=== PATIENT | female | born 1975 | race Hispanic/Latino ===

== ENCOUNTER 2019-01-05 14:19 | Observation (INO) | payer SELFPAY ==
[2019-01-05 15:09] LABS: #Basophils 0.1 thou/uL (0.0-0.2); #Eosinphils 0.1 thou/uL (0.0-0.7); #Lymphocytes 3.3 thou/uL (1.20-3.40); #Monocytes 0.5 thou/uL (0.11-0.59); %Basophils 1.1 % (0.0-1.0); %Eosinophils 1.6 % (0.0-10.0); %Lymphocytes 36.9 % (21.0-51.0); %Monocytes 5.4 % (0.0-10.0); Hemoglobin 15.6 g/dL (12.0-16.0); Mean Corpuscular HGB CONC 34.7 g/dL (32.0-36.0); Mean Corpuscular Volume 89.2 fL (78.0-98.0); Mean Platelet Volume 10.5 fL (7.4-10.4); Platelet Count 216 thou/uL (130-400); RBC Distribution Width 12.6 % (11.5-14.5); Red Blood Cell (RBC) Count 5.04 mill/uL (4.20-5.40)
--- NOTE | 2019-01-05 15:24 | RAD ---
TWO VIEW CHEST: Indication: Chest pain. FINDINGS: The lung romero are clear. Vascular markings are normal. Heart and mediastinum are unremarkable. Osse ous structures unremarkable. IMPRESSION: Unremarkable chest. POS: [facility]
[2019-01-05 15:32] LABS: ALT (SGPT) 104 U/L (8-55); AST (SGOT) 69 U/L (5-34); Albumin 5.1 g/dL (3.5-5.0); Alkaline Phosphatase 106 U/L (40-150); Anion Gap 20 mmol/L (10-20); BUN (Urea Nitrogen) 11 mg/dL (7.0-18.7); Bilirubin, Total 1.7 mg/dL (0.2-1.2); CK (CPK) 68 U/L (29-168); Calc. Creatinine Clearance 0 mL/min (70-130); Calcium 11.2 mg/dL (7.8-10.44); Carbon Dioxide 19 mmol/L (22-29); Chloride 98 mmol/L (98-107); Estimated GFR-MDRD 85; Globulin 3.8 g/dL (2.4-3.5); Glucose 107 mg/dL (70-105); Protein, Total 8.9 g/dL (6.0-8.3); Sodium 134 mmol/L (136-145)
[2019-01-05 15:45] LABS: Potassium 2.6 mmol/L (3.5-5.1)
[2019-01-05] MEDS ORDERED: Potassium Chloride 20 MEQ TAB ONE (16:44)
--- NOTE | 2019-01-05 18:27 | PDOC.FPRHP ---
- History of Present Illness Chief Complaint: Chest pain History of Present Illness: Ms. Rosales presents for complaints of chest pain She reports pressure like sensation surrounding her entire chest, intermittent in nature. She has also been noticing SOB for 2 weeks, WATKINS present, also difficulty sleeping 2/2 SOB. She also reports palpitations, blurry vision, pre- syncope, and headache during these episodes. She denies diaphoresis or abdominal episode. She denies a heart history and has never had a work up. ED Course: CBC, CMP, trop, EKG, CK, Mg Potassium - Allergies/Adverse Reactions Allergies Allergy/AdvReac Type Severity Reaction Status Date / Time No Known Drug Allergies Allergy Unverified 01/05/19 23:39 - History PMHx: DMII, HTN PSHx: cancerous lesion removal FHx:DMII Social: No TAD - Review of Systems General: denies: fever/chills, weight/appetite/sleep changes Eyes: denies: vision changes Respiratory: reports: shortness of breath. denies: cough, congestion Cardiovascular: reports: chest pain, palpitation. denies: edema Gastrointestinal: denies: nausea, vomiting, diarrhea Genitourinary: denies: dysuria Skin: denies: rashes Musculoskeletal: denies: pain Neurological: denies: numbness, syncope - Vital signs BP: 149/91 HR: 110 RR: 15 Tmax: 98.6 Pox: 98% on RA Wt: 63kg - Physical Exam Constitutional: NAD, awake, alert and oriented HEENT: normocephalic and atraumatic, grossly normal vision, grossly normal hearing Neck: supple, trachea midline Chest: no-tender to palpation Heart: RRR, normal S1/S2, no murmurs/rubs/gallops, pulses present, no edema Lungs: CTAB, no respiratory distress, good air movement Abdomen: soft, non-tender Musculoskeletal: normal structure, normal tone Neurological: no focal deficit, CN II-XII intact Skin: no rash/lesions, good turgor Heme/Lymphatic: no unusual bruising or bleeding Psychiatric: normal mood and affect FMR H&P: Results - Labs Result Diagrams: 01/05/19 14:51 01/05/19 14:51 Lab results: WBC 9.0 thou/uL (4.8-10.8) 01/05/19 14:51 Hgb 15.6 g/dL (12.0-16.0) 01/05/19 14:51 Hct 44.9 % (36.0-47.0) 01/05/19 14:51 MCV 89.2 fL (78.0-98.0) 01/05/19 14:51 Plt Count 216 thou/uL (130-400) 01/05/19 14:51 Neutrophils % 55.0 % (42.0-75.0) 01/05/19 14:51 Sodium 134 mmol/L (136-145) L 01/05/19 14:51 Potassium 2.6 mmol/L (3.5-5.1) L* 01/05/19 14:51 Chloride 98 mmol/L (98-107) 01/05/19 14:51 Carbon Dioxide 19 mmol/L (22-29) L 01/05/19 14:51 BUN 11 mg/dL (7.0-18.7) 01/05/19 14:51 Creatinine 0.74 mg/dL (0.6-1.1) 01/05/19 14:51 Glucose 107 mg/dL (70-105) H 01/05/19 14:51 Calcium 11.2 mg/dL (7.8-10.44) H 01/05/19 14:51 Total Bilirubin 1.7 mg/dL (0.2-1.2) H 01/05/19 14:51 AST 69 U/L (5-34) H 01/05/19 14:51 ALT 104 U/L (8-55) H 01/05/19 14:51 Alkaline Phosphatase 106 U/L (40-150) 01/05/19 14:51 Creatine Kinase 68 U/L (29-168) 01/05/19 14:51 Serum Total Protein 8.9 g/dL (6.0-8.3) H 01/05/19 14:51 Albumin 5.1 g/dL (3.5-5.0) H 01/05/19 14:51 FMR H&P: A/P - Problem List (1) Atypical chest pain Current Visit: Yes Status: Acute Code(s): R07.89 - OTHER CHEST PAIN (2) DMII (diabetes mellitus, type 2) Current Visit: Yes Status: Acute (3) HTN (hypertension) Current Visit: Yes Status: Acute Code(s): I10 - ESSENTIAL (PRIMARY) HYPERTENSION (4) Transaminitis Current Visit: Yes Status: Acute Code(s): R74.0 - NONSPEC ELEV OF LEVELS OF TRANSAMNS & LACTIC ACID DEHYDRGNSE - Plan Atypical chest pain - VSS, trop negx3, EKG wnl, risk factors present - unlikely cardiac in nature, no further workup indicated - FLP pending - observation on tele HTN - aware, continue home meds DMII - aware, continue home meds Hypokalemia - supplemented in ED - monitor CMP Transaminitis - most likely NAFLD - consider hepatitis panel, RUQ US - can be worked up outpatient Code: full ppx: lovenox dispo: admit to tele for monitoring, further risk stratification with FLP, consider statin FMR H&P: Upper Level - Pertinent history 43F p/w two weeks of intermittent chest pain. Described as a tightness and an "inflammation". She points to the epigastric region, but reports the pain will occasionally radiate to bilateral flanks. The pain will sometimes occur while cleaning the house, but will also occur during periods of rest. Associated with mild SOB and WATKINS during these painful episodes. Also c/o lightheadedness and headaches over the last several weeks as well. She denies any heartburn, cough, or fevers. Pain not associated with meals. ED: KCL 40mEq - Pertinent findings CXR: negative EKG: NSR CBC normal Na: 134 K: 2.6 Ma.2 Ca: 11.2 T.bili: 1.7 AST/ALT: 69/104 trop: negative gen: A&Ox3; in no acute distress CV: RRR, no murmurs; no pain to palpation of chest wall Pulm: CTA-B Abd: mild LUQ tenderness; no guarding or distention - Plan Date/Time: 01/05/191824 IAmado, have evaluated this patient and agree with findings/plan as outlined by market research intern resident. Pertinent changes/additions are listed here. Atypical chest pain r/o ACS: admit to tele/obs. Trend troponins, normal EKG with no T wave abnormalities. Possibly precipitated by recent addition of metformin and HCTZ. VSS in ED. Heart score of 1. No stress test or further cardiac work up indicated. Hypokalemia: repleted with 40mEq. recheck in AM. No changes on EKG. Transaminitis: moderate elevation in AST/ALT with increased total bilirubin. Consider checking hepatitis panel and RUQ US. Alk phos is normal, likely no biliary obstruction. Patient denies any acetaminophen usage. Plts and albumin are appropriate, no stigmata of chronic liver disease
[2019-01-05 18:39] LABS: Troponin I Less than 0.010 ng/mL (< 0.028)
[2019-01-05 21:44] LABS: Troponin I Less than 0.010 ng/mL (< 0.028)
[2019-01-05] MEDS ORDERED: Acetaminophen 325 MG TAB PO PRN (23:30)
[2019-01-06] MEDS ORDERED: Morphine 4 MG/ML VIAL SLOW IVP PRN (01:52)
[2019-01-06] MEDS ORDERED: Nitroglycerin 0.4 MG TAB (25 Tab Bottle) SL PRN (01:52)
[2019-01-06 04:22] LABS: #Eosinphils 0.2 thou/uL (0.0-0.7); #Lymphocytes 2.7 thou/uL (1.20-3.40); #Monocytes 0.5 thou/uL (0.11-0.59); %Basophils 0.6 % (0.0-1.0); %Eosinophils 2.6 % (0.0-10.0); %Lymphocytes 36.4 % (21.0-51.0); %Monocytes 6.8 % (0.0-10.0); %Neutrophils 53.5 % (42.0-75.0); Hemoglobin 14.6 g/dL (12.0-16.0); Mean Corpuscular HGB CONC 34.6 g/dL (32.0-36.0); Mean Corpuscular Hemoglobin 31.2 pg (27.0-31.0); Mean Corpuscular Volume 90.2 fL (78.0-98.0); Mean Platelet Volume 10.5 fL (7.4-10.4); Platelet Count 191 thou/uL (130-400); RBC Distribution Width 12.9 % (11.5-14.5); Red Blood Cell (RBC) Count 4.67 mill/uL (4.20-5.40); White Blood Cell (WBC) Count 7.5 thou/uL (4.8-10.8)
[2019-01-06 04:46] LABS: ALT (SGPT) 81 U/L (8-55); AST (SGOT) 48 U/L (5-34); Albumin 4.4 g/dL (3.5-5.0); Alkaline Phosphatase 86 U/L (40-150); Anion Gap 15 mmol/L (10-20); BUN (Urea Nitrogen) 17 mg/dL (7.0-18.7); Bilirubin, Total 1.2 mg/dL (0.2-1.2); Calc. Creatinine Clearance 0 mL/min (70-130); Calcium 9.9 mg/dL (7.8-10.44); Carbon Dioxide 18 mmol/L (22-29); Cardiac Risk 5.7 (Less than 4.5); Chloride 108 mmol/L (98-107); Cholesterol 193 mg/dl (< 200 Desired); Estimated GFR-MDRD 84; Globulin 3.3 g/dL (2.4-3.5); Glucose 121 mg/dL (70-105); HDL Cholesterol 34 mg/dL (>60 Neg Risk); LDL Cholesterol, Calculated 123 mg/dL; Potassium 3.3 mmol/L (3.5-5.1); Protein, Total 7.7 g/dL (6.0-8.3); Sodium 138 mmol/L (136-145); Triglycerides 178 mg/dL (Less than 150)
[2019-01-06] MEDS ORDERED: Potassium Chloride 20 MEQ TAB PO SCH (07:30)
[2019-01-06] MEDS ORDERED: Potassium Chloride 20 MEQ TAB ONE (08:27)
[2019-01-06] MEDS ORDERED: Enoxaparin Sodium 40 MG/0.4 ML SYRINGE ONE (08:27)
[2019-01-06] MEDS: Potassium Chloride 20 MEQ TAB PO SCH (08:33)
[2019-01-06] MEDS: Enoxaparin Sodium 40 MG/0.4 ML SYRINGE SC SCH (08:35)
--- NOTE | 2019-01-06 11:39 | PDOC.FM ---
- Subjective Subjective: 43 yo female complaining of chest pain yesterday that has been going on for two weeks. Episodic in nature, lasting ten minutes, described as diffuse chest pain/ pressure throughout her entire chest, radiation to back, associated shortness of breath, with exertion while cleaning. Denies any more chest pain since yesterday. Feels better this morning. - Objective MAR Reviewed: Yes Result Diagrams: 01/06/19 04:11 01/06/19 11:36 EKG Reviewed by me: Yes (t wave inversions anterior leads) Radiology Reviewed by me: Yes Phys Exam - Physical Examination Constitutional: NAD HEENT: PERRLA, moist MMs Respiratory: no wheezing, no rales, clear to auscultation bilateral Cardiovascular: RRR, no significant murmur Gastrointestinal: soft, non-tender, no distention Musculoskeletal: no edema, pulses present Neurological: non-focal, normal sensation Psychiatric: normal affect, A&O x 3 Skin: no rash, cap refill <2 seconds Dx/Plan (1) Chest pain Code(s): R07.9 - CHEST PAIN, UNSPECIFIED Status: Acute (2) Hypokalemia Code(s): E87.6 - HYPOKALEMIA Status: Acute (3) DMII (diabetes mellitus, type 2) Status: Acute (4) HTN (hypertension) Code(s): I10 - ESSENTIAL (PRIMARY) HYPERTENSION Status: Acute (5) Transaminitis Code(s): R74.0 - NONSPEC ELEV OF LEVELS OF TRANSAMNS & LACTIC ACID DEHYDRGNSE Status: Acute (6) Hx of skin malignancy Code(s): Z85.828 - PERSONAL HISTORY OF OTHER MALIGNANT NEOPLASM OF SKIN Status : Acute (7) History of chemotherapy Code(s): Z92.21 - PERSONAL HISTORY OF ANTINEOPLASTIC CHEMOTHERAPY Status: Acute - Plan Plan: 43 yo f with chest pain and shortness and breath admitted for chest pain. #Chest pain-diffuse but associated with exertion and shortness of breath and nausea. Trops neg X3 but t wave inversions in anterior leads. Despite low heart score, in light of EKG changes we will plan on stressing the patient. DDX: Pulm embolus, GERD #hypokalemia- -replaced, recheck bmp in am #HTN- -monitor -continue hctz 25mg daily #DM, type 2- -ACHS glucose checks -hypoglycemia protrocol -hba1c -continue metformen 1000mg bid #ASCVD risk-5.5% -will start moderate intensity statin #Transaminitis-likely NAFLD -downtrending, will continue to monitor dispo: likely dc if stress is negative CODE: FULL Addendum - Attending - Attending Attestation Date/Time: 01/06/19 [id number] I personally evaluated the patient and discussed the management with Dr. Chadwick. I agree with and repeated the History, Examination, Assessment and Plan documented above with any addition or exceptions noted below. Patient with pressures, nausea, diaphoresis and possibly mild exertional component. Plan for treadmill stress with dispo pending.
[2019-01-06 12:02] LABS: Potassium 3.6 mmol/L (3.5-5.1)
[2019-01-06] MEDS ORDERED: HumaLOG 300 UNITS/3 ML VIAL SC PRN (12:38)
[2019-01-06] MEDS ORDERED: Dextrose 50% Abboject 50 ML SYRINGE SLOW IVP PRN (12:38)
[2019-01-06] MEDS ORDERED: Dextrose 5% in Water 1,000 ML IV PRN (12:38)
[2019-01-06 13:35] LABS: Hemoglobin A1c 9.7 % (4.0-6.0)
--- NOTE | 2019-01-06 16:19 | PDOC.EVN ---
Event Note - Event Note Event Note: Paged from ER stating that pt is short of breath and having chest pressure. Evaluated pt at bedside. Repeated EKG and trops. No wheezing on exam. No increased work of breathing at that time. Pt given aspirin and nitro. Received a second page about ten minutes later stating that the pt was having some increased work of breathing, ordered an ABG to evaluate, which showed a respiratory alkalosis. Pt could just be having panic attacks. Will plan on stress in the am however to rule out chest pain. Trop pending.
[2019-01-06 16:41] LABS: Actual Bicarbonate (HCO3a) 14.1 mEq/L (22-28); Analyzer IN Cardio ER; Base Excess (BEa) -3.1 mEq/L (-2.0 to +3.0); Calcium, Ionized 1.16 mmol/L (1.12-1.30); Carboxyhemoglobin (COHb) 0.3 gm% (0.0-3.0); O2 Tension (PaO2) 127.4 mmHg (80.0-100.0); Potassium - ABG Lab 3.19 mmol/L (3.70-5.30)
[2019-01-06 16:43] LABS: CO2 Tension 13.6 mmHg (35.0-45.0); Puncture Site L.R.; pH, Arterial 7.63 (7.35-7.45)
[2019-01-06] MEDS ORDERED: Aspirin 325 MG TAB ONE (18:01)
[2019-01-06] MEDS ORDERED: Nitroglycerin 0.4 MG TAB 1 EACH ONE (18:08)
[2019-01-06 18:28] VITALS: BMI 26.2
[2019-01-06] MEDS ORDERED: Acetaminophen 325 MG TAB PO PRN (18:31)
[2019-01-06] MEDS ORDERED: Ondansetron ODT 4 MG TAB SL PRN (18:31)
[2019-01-06] MEDS ORDERED: Ondansetron PF 4 MG/2 ML Vial IVP PRN (18:31)
[2019-01-06] MEDS: metFORMIN 500 MG TAB PO SCH (20:03)
[2019-01-06] MEDS ORDERED: Atorvastatin Calcium 20 MG TAB PO SCH (21:00)
[2019-01-06 22:12] LABS: Troponin I Less than 0.010 ng/mL (< 0.028)
[2019-01-07 01:00] LABS: Troponin I Less than 0.010 ng/mL (< 0.028)
--- NOTE | 2019-01-07 06:34 | PDOC.FM ---
- Subjective Subjective: No acute events overnight. Denies chest pain or shortness of breath since prior episode yesterday afternoon. Slept well. - Objective MAR Reviewed: Yes Vital Signs & Weight: Vital Signs (12 hours) Temp Pulse Resp BP Pulse Ox 01/07/19 04:05 97.8 F 67 14 129/74 99 01/06/19 23:48 97.7 F 72 12 126/62 98 Weight Weight 59.421 kg I&O: 01/05/19 01/06/19 01/07/19 06:59 06:59 06:59 Intake Total 300 Balance 300 Result Diagrams: 01/06/19 04:11 01/06/19 11:36 Phys Exam - Physical Examination Constitutional: NAD HEENT: PERRLA, moist MMs Respiratory: no wheezing, no rales, clear to auscultation bilateral Cardiovascular: RRR, no significant murmur Gastrointestinal: soft, non-tender, no distention, positive bowel sounds Musculoskeletal: no edema, pulses present Neurological: non-focal, normal sensation, moves all 4 limbs Psychiatric: normal affect, A&O x 3 Skin: no rash, normal turgor, cap refill <2 seconds Dx/Plan (1) Chest pain Code(s): R07.9 - CHEST PAIN, UNSPECIFIED Status: Acute (2) Hypokalemia Code(s): E87.6 - HYPOKALEMIA Status: Acute (3) DMII (diabetes mellitus, type 2) Status: Acute (4) HTN (hypertension) Code(s): I10 - ESSENTIAL (PRIMARY) HYPERTENSION Status: Acute (5) Transaminitis Code(s): R74.0 - NONSPEC ELEV OF LEVELS OF TRANSAMNS & LACTIC ACID DEHYDRGNSE Status: Acute (6) Hx of skin malignancy Code(s): Z85.828 - PERSONAL HISTORY OF OTHER MALIGNANT NEOPLASM OF SKIN Status : Acute (7) History of chemotherapy Code(s): Z92.21 - PERSONAL HISTORY OF ANTINEOPLASTIC CHEMOTHERAPY Status: Acute - Plan Plan: 43 yo f with chest pain and shortness and breath admitted for chest pain. #Chest pain-diffuse pressure but associated with exertion and shortness of breath and nausea. Trops neg X3 but t wave inversions in anterior leads. -Sudden chest pain yesterday afternoon, repeat EKG showed T wave inversions again in V2-V5 -trops repeated and again negative x 3 -pt developed shortness of breath following the chest pain, ABG showed respiratory alkalosis, planning for stress this morning to rule out cardiac etiology, but patient could also very well be having panic attacks. -if stress negative, ok for discharge #hypokalemia- -replaced,bmp pending #HTN- -monitor -continue hctz 25mg daily #DM, type 2- -ACHS glucose checks -hypoglycemia and hyperglycemia protocol ordered -hba1c -continue metformin 1000mg bid #ASCVD risk-5.5% -continue atorvastatin 20mg daily #Transaminitis-likely NAFLD -downtrending, will continue to monitor dispo: likely dc if stress is negative CODE: FULL Addendum - Attending - Attending Attestation Date/Time: 01/07/19 9819 I personally evaluated the patient and discussed the management with Dr. Chadwick. I agree with and repeated the History, Examination, Assessment and Plan documented above with any addition or exceptions noted below.
[2019-01-07] MEDS ORDERED: Hydrochlorothiazide 25 MG TAB PO SCH (09:00)
[2019-01-07] MEDS ORDERED: Regadenoson 0.4 MG/5 ML SYRINGE ONE (10:48)
--- NOTE | 2019-01-07 11:04 | NM ---
CARDIAC SPECT: HISTORY: A 43-year-old female with chest hypertension, and diabetes. TECHNIQUE: A myocardial perfusion scan is performed using the single-isotope 1-day protocol with Technetium 99m sestamibi. 11 mCi were injected intravenously for the rest exam followed by [address] udy. Pharmacologic stress with LexiScan is monitored and interpreted by Dr. Pillai. FINDINGS: Homogeneous tracer distribution is seen in the myocardial segments on stress and rest images. GATED SPECT LVEF: 67%. WALL MOTION EXAM: Normal. IMPRESSION: Normal myocardial perfusion scan. POS: C
[2019-01-07] MEDS: Enoxaparin Sodium 40 MG/0.4 ML SYRINGE SC SCH (12:23)
[2019-01-07] MEDS: Potassium Chloride 20 MEQ TAB PO SCH (12:23)
[2019-01-07] MEDS: metFORMIN 500 MG TAB PO SCH (12:23)
[2019-01-07 12:34] VITALS: BP 114/67; TEMP 97.5
== END 2019-01-07 13:47 | disposition home or self-care (01) ==
LOC: ERS 14:19 → ERHOLD 17:43 → 2SW 01-06 18:07
PROVIDERS: ADMIT Family Medicine; ATTEND Family Medicine
DX: R07.89 Other chest pain (principal); E11.9 Type 2 diabetes mellitus without complications; I10 Essential (primary) hypertension; E87.6 Hypokalemia; R74.0 Nonspecific elevation of levels of transaminase and lactic acid dehydrogenase [LDH]
CPT/HCPCS: 36415; 36416; 71046; 78452; 80053; 80061; 82550; 82805; 83036; 83735; 84484; 85025; 85379; 93005; 93017; 94760; 96372; A9500; G0378; J1650; J2785

== ENCOUNTER 2023-07-03 09:32 | Emergency (ER) | payer SELFPAY ==
[2023-07-03 10:26] LABS: #Eosinphils 0.1 thou/uL (0.0-0.7); #Monocytes 0.4 thou/uL (0.11-0.59); %Basophils 0.5 % (0.0-1.0); %Eosinophils 2.5 % (0.0-10.0); %Lymphocytes 34.1 % (21.0-51.0); %Monocytes 7.9 % (0.0-10.0); %Neutrophils 54.8 % (42.0-75.0); Hematocrit 36.4 % (36.0-47.0); Hemoglobin 12.1 g/dL (12.0-16.0); Mean Corpuscular HGB CONC 33.2 g/dL (32.0-36.0); Mean Corpuscular Hemoglobin 28.4 pg (27.0-31.0); Mean Corpuscular Volume 85.4 fl (78.0-98.0); Mean Platelet Volume 11.1 fL (7.4-10.4); Platelet Count 241 10x3/uL (130-400); RBC Distribution Width 14.9 % (11.5-14.5); Red Blood Cell (RBC) Count 4.26 mill/uL (4.20-5.40); White Blood Cell (WBC) Count 5.5 10x3/uL (4.8-10.8)
[2023-07-03 10:50] LABS: ALT (SGPT) 16 U/L (8-55); AST (SGOT) 19 U/L (5-34); Albumin 4.1 g/dL (3.5-5.0); Alkaline Phosphatase 158 U/L (40-110); Anion Gap 16 mmol/L (10-20); BUN (Urea Nitrogen) 12 mg/dL (7.0-18.7); Bilirubin, Total 0.8 mg/dL (0.2-1.2); Calc. Creatinine Clearance 0 mL/min (70-130); Calcium 9.4 mg/dL (7.8-10.44); Carbon Dioxide 19 mmol/L (22-29); Chloride 108 mmol/L (98-107); Estimated GFR 107; Globulin 3.3 g/dL (2.4-3.5); Glucose 155 mg/dL (70-105); Potassium 3.9 mmol/L (3.5-5.1); Protein, Total 7.4 g/dL (6.0-8.3); Sodium 139 mmol/L (136-145)
== END 2023-07-03 12:15 | disposition home or self-care (01) ==
LOC: ERS 09:32
DX: R51.9 Headache, unspecified (principal); M89.9 Disorder of bone, unspecified; E11.9 Type 2 diabetes mellitus without complications; Z79.899 Other long term (current) drug therapy
CPT/HCPCS: 36415; 70450; 80053; 85025